=== PATIENT | male | born 2000 | race African-American/Black ===

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

== ENCOUNTER 2020-02-09 04:11 | Emergency (ER) | payer OTHER ==
--- NOTE | 2020-02-09 07:52 | RAD ---
SINGLE VIEW CHEST: Date: 02/09/2020 COMPARISON: None. HISTORY: Difficulty breathing. Patient's stepmom tested positive for COVID-19. FINDINGS: Single view of the chest shows a normal sized cardiomediastinal silhouette. There is no evidence of c onsolidation, mass, or pleural effusion. The bones are unremarkable. IMPRESSION: No evidence of acute cardiopulmonary disease. POS: EAA
== END 2020-02-09 04:56 | disposition home or self-care (01) ==
LOC: ERS 04:11
DX: R07.9 Chest pain, unspecified (principal); F17.210 Nicotine dependence, cigarettes, uncomplicated
CPT/HCPCS: 71045; 93005

== ENCOUNTER 2020-05-20 16:53 | Emergency (ER) | payer OTHER | END 2020-05-20 17:36 | disposition home or self-care (01) | LOC: ERS 16:53 | DX: A64 Unspecified sexually transmitted disease (principal); F17.210 Nicotine dependence, cigarettes, uncomplicated | CPT/HCPCS: 99281 ==

== ENCOUNTER 2020-08-07 18:42 | Emergency (ER) | payer SELFPAY ==
[2020-08-08 09:07] LABS: SARS-CoV-2 MS2 Positive; SARS-CoV-2 N Gene Positive; SARS-CoV-2 S Gene Positive; SARS-CoV-2 by NAA DETECTED (NotDetected); SARS-CoV-2 orf1ab Positive
== END 2020-08-07 19:15 | disposition home or self-care (01) ==
LOC: ERS 18:42
DX: U07.1 COVID-19 (principal); F41.9 Anxiety disorder, unspecified; F17.210 Nicotine dependence, cigarettes, uncomplicated
CPT/HCPCS: 87081; 87430; 87635; 99283; U0003

== ENCOUNTER 2020-08-10 12:47 | Emergency (ER) | payer SELFPAY ==
[2020-08-10] MEDS ORDERED: Ketorolac Tromethamine 30 MG/ML VIAL ONE (13:22)
[2020-08-10 13:53] LABS: #Eosinphils 0.1 thou/uL (0.0-0.7); #Monocytes 0.5 thou/uL (0.11-0.59); #Neutrophils 1.4 thou/uL (1.40-6.50); %Basophils 1.2 % (0.0-1.0); %Eosinophils 3.6 % (0.0-10.0); %Lymphocytes 48.5 % (28.0-48.0); %Monocytes 12.4 % (0.0-4.0); %Neutrophils 34.4 % (31.0-61.0); Hemoglobin 17.1 g/dL (14.0-18.0); Mean Corpuscular HGB CONC 34.4 g/dL (32.0-36.0); Mean Corpuscular Hemoglobin 31.1 pg (25.0-35.0); Mean Corpuscular Volume 90.5 fL (78.0-98.0); Platelet Count 205 thou/uL (130-400); RBC Distribution Width 12.7 % (11.5-14.5); White Blood Cell (WBC) Count 4.1 thou/uL (4.8-10.8)
[2020-08-10 14:07] LABS: ALT (SGPT) 33 U/L (8-55); AST (SGOT) 28 U/L (5-34); Albumin 4.1 g/dL (3.5-5.0); Alkaline Phosphatase 84 U/L (50-130); Anion Gap 16 mmol/L (10-20); BUN (Urea Nitrogen) 10 mg/dL (8.9-20.6); Bilirubin, Total 0.3 mg/dL (0.2-1.2); Calc. Creatinine Clearance 0 mL/min (70-130); Calcium 9.4 mg/dL (7.8-10.44); Carbon Dioxide 24 mmol/L (22-29); Chloride 104 mmol/L (98-107); Estimated GFR-MDRD Greater than 90; Globulin 3.8 g/dL (2.4-3.5); Glucose 83 mg/dL (70-105); Magnesium 1.7 mg/dL (1.7-2.2); Potassium 3.8 mmol/L (3.5-5.1); Protein, Total 7.9 g/dL (6.0-8.3); Sodium 140 mmol/L (136-145)
--- NOTE | 2020-08-10 14:09 | RAD ---
Chest one view HISTORY: Dyspnea. COVID positive. COMPARISON: 02/09/2020. FINDINGS: Cardiac silhouette and pulmonary vasculature are unremarkable. Mediastinum is midline. No lobar consolidation or evidence of pneumothorax. IMPRESSION : Normal exam.
== END 2020-08-10 15:38 | disposition home or self-care (01) ==
LOC: ERS 12:47
DX: U07.1 COVID-19 (principal); F41.9 Anxiety disorder, unspecified; F17.210 Nicotine dependence, cigarettes, uncomplicated
CPT/HCPCS: 71045; 80053; 83735; 84484; 85025; 93005; 96374; J1885

== ENCOUNTER 2020-09-10 13:58 | Emergency (ER) | payer SELFPAY ==
[2020-09-10] MEDS ORDERED: Ketorolac Tromethamine 30 MG/ML VIAL ONE (14:25)
--- NOTE | 2020-09-10 14:54 | RAD ---
EXAM: LEFT SHOULDER THREE VIEWS: 09/10/20 HISTORY: Left shoulder pain. Pain radiating down left side of back. FINDINGS/IMPRESSION: No fracture, dislocation, or other significant acute osseous process. POS: RRE
== END 2020-09-10 15:29 | disposition home or self-care (01) ==
LOC: ERS 13:58
DX: M25.512 Pain in left shoulder (principal); F17.210 Nicotine dependence, cigarettes, uncomplicated
CPT/HCPCS: 96372; J1885

== ENCOUNTER 2020-09-16 15:33 | Emergency (ER) | payer SELFPAY ==
[2020-09-16] MEDS ORDERED: Boostrix 0.5 ML (Tdap) VIAL ONE (17:21)
== END 2020-09-16 17:22 | disposition left against medical advice (07) ==
LOC: ERS 15:33
DX: Z53.21 Procedure and treatment not carried out due to patient leaving prior to being seen by health care provider (principal)
CPT/HCPCS: 90715; 93005

== ENCOUNTER 2020-12-04 17:16 | Emergency (ER) | payer SELFPAY ==
[2020-12-04] MEDS ORDERED: hydrOXYzine 25 MG TAB ONE (18:29)
== END 2020-12-04 18:36 | disposition home or self-care (01) ==
LOC: ERS 17:16
DX: F43.0 Acute stress reaction (principal); R07.89 Other chest pain; J45.909 Unspecified asthma, uncomplicated; F17.210 Nicotine dependence, cigarettes, uncomplicated
CPT/HCPCS: 71046; 93005

== ENCOUNTER 2020-12-06 22:46 | Emergency (ER) | payer SELFPAY ==
[2020-12-07] MEDS ORDERED: cefTRIAXone\\ROCEPHIN 500 MG VIAL ONE (00:19)
[2020-12-08 17:16] LABS: Chlam.trachomatis by PCR,Urine Not Detected (NotDetected)
== END 2020-12-07 00:16 | disposition home or self-care (01) ==
LOC: ERS 22:46
DX: Z11.3 Encounter for screening for infections with a predominantly sexual mode of transmission (principal); J45.909 Unspecified asthma, uncomplicated; F17.210 Nicotine dependence, cigarettes, uncomplicated
CPT/HCPCS: 87491; 87591; 96372; 99281; J0696

== ENCOUNTER 2022-02-10 23:12 | Emergency (ER) | payer OTHER ==
[2022-02-11 01:02] LABS: #Basophils 0.1 thou/uL (0.0-0.2); #Eosinphils 0.2 thou/uL (0.0-0.7); #Lymphocytes 1.7 thou/uL (1.20-3.40); #Monocytes 0.7 thou/uL (0.11-0.59); #Neutrophils 4.9 thou/uL (1.40-6.50); %Basophils 0.9 % (0.0-1.0); %Eosinophils 2.3 % (0.0-10.0); %Lymphocytes 22.6 % (21.0-51.0); %Monocytes 8.7 % (0.0-10.0); %Neutrophils 65.5 % (42.0-75.0); Hemoglobin 15.3 g/dL (14.0-18.0); Mean Corpuscular HGB CONC 32.5 g/dL (32.0-36.0); Mean Corpuscular Volume 92.3 fL (78.0-98.0); Mean Platelet Volume 8.8 fL (7.4-10.4); Platelet Count 283 thou/uL (130-400); RBC Distribution Width 12.9 % (11.5-14.5); Red Blood Cell (RBC) Count 5.12 mill/uL (4.70-6.10); White Blood Cell (WBC) Count 7.5 thou/uL (4.8-10.8)
[2022-02-11 01:22] LABS: ALT (SGPT) 38 U/L (8-55); AST (SGOT) 28 U/L (5-34); Alkaline Phosphatase 92 U/L (40-110); Anion Gap 11 mmol/L (10-20); BUN (Urea Nitrogen) 17 mg/dL (8.9-20.6); Bilirubin, Total 0.3 mg/dL (0.2-1.2); Calc. Creatinine Clearance 0 mL/min (70-130); Calcium 9.4 mg/dL (7.8-10.44); Carbon Dioxide 28 mmol/L (22-29); Chloride 102 mmol/L (98-107); Globulin 3.5 g/dL (2.4-3.5); Glucose 95 mg/dL (70-105); Potassium 4.1 mmol/L (3.5-5.1); Protein, Total 7.5 g/dL (6.0-8.3); Sodium 137 mmol/L (136-145)
== END 2022-02-11 02:14 | disposition home or self-care (01) ==
LOC: ERS 23:12
DX: F41.9 Anxiety disorder, unspecified (principal); J45.909 Unspecified asthma, uncomplicated; F17.210 Nicotine dependence, cigarettes, uncomplicated
CPT/HCPCS: 36415; 71045; 80053; 84443; 84484; 85025; 93005

== ENCOUNTER 2022-12-29 16:29 | Emergency (ER) | payer SELFPAY | END 2022-12-29 16:51 | disposition home or self-care (01) | LOC: ERS 16:29 | DX: M79.5 Residual foreign body in soft tissue (principal); F17.210 Nicotine dependence, cigarettes, uncomplicated | CPT/HCPCS: 99282 ==